=== PATIENT | male | born 1970 | race Caucasian/White ===

== ENCOUNTER 2024-01-03 13:58 | Emergency (ER) | payer BC, SELFPAY ==
[2024-01-03] VITALS (7 sets, daily range): BP systolic 103–123; BP diastolic 79–93
[2024-01-03 14:37] LABS: % Basophils 0.8 % (0-2); % Eosinophils 5.1 % (0-6); % Immature Granulocytes 0.2 % (0-0.5); % Lymphocytes 35.4 % (20.5-51.1); % Monocytes 6.9 % (1.7-9.3); % Neutrophils 51.6 % (42.2-75.2); Absolute Basophils 0.1 10^3/uL (0-0.2); Absolute Eosinophils 0.5 10^3/uL (0-0.7); Absolute Lymphocytes 3.3 10^3/uL (1.2-3.4); Absolute Monocytes 0.6 10^3/uL (0.1-0.6); Absolute Neutrophils 4.8 10^3/uL (1.4-6.5); Hemoglobin 14.8 g/dL (13.0-18.0); Mean Corp Hgb Conc. 35.2 g/dL (33.0-37.0); Mean Corpuscular Hgb 28.7 pg (27.0-31.0); Mean Corpuscular Volume 81.6 fL (80.0-94.0); Mean Platelet Volume 9.3 fL (7.4-10.4); Nucleated Red Blood Cells % 0 % (-); Platelet Count 262 10^3/uL (130-400); Red Blood Cell Count 5.15 10^6/uL (4.70-6.10); Red Cell Dist. Width 12.1 % (11.5-14.5); White Blood Cell Count 9.3 10^3/uL (4.8-10.8)
[2024-01-03 14:56] LABS: D-Dimer < 0.27 ug/mlFEU (0.00-0.50)
[2024-01-03 14:59] LABS: ALT (SGPT) 14 U/L (0-50); AST (SGOT) 21 U/L (17-59); Albumin 4.2 g/dl (3.5-5.0); Alkaline Phosphatase 62 U/L (38-126); Blood Urea Nitrogen 15 mg/dl (9-20); Calcium 9.5 mg/dl (8.4-10.2); Carbon Dioxide 28 mmol/L (22-30); Chloride 105 mmol/L (98-107); Glucose 98 mg/dl (70-99); Potassium 4.3 mmol/L (3.5-5.1); Sodium 139 mmol/L (135-145); Total Bilirubin 0.4 mg/dl (0.2-1.3); Total Protein 6.9 g/dl (6.3-8.2); eGFR > 60.00
[2024-01-03 15:11] LABS: Troponin I < 0.012 ng/ml
[2024-01-03 15:51] LABS: Lipase 218 U/L (23-300)
[2024-01-03 17:58] LABS: Troponin I < 0.012 ng/ml
--- NOTE | 2024-01-03 18:59 | ED.GENMED ---
History of Present Illness
General
Chief Complaint: Chest Pain
Source: patient and spouse
Exam Limitations: none
Time Seen by Provider: 01/03/24 14:20
Nursing documentation reviewed up to this point in time: agreed with
Travel History
Have you had any contact with someone who has COVID-19?: No
Do you have any symptoms of coronavirus? Fever > 100 degrees, chills, cough, shortness of breath, sore throat, loss of taste or smell, muscle aches, or headache?: No
History of Present Illness
History of Present Illness:
53-year-old male with a past medical history of cardiomyopathy, hyperlipidemia, distant history of alcohol abuse (1 year sober), GERD with a hiatal hernia who presents to the emergency department for evaluation of chest pain. Patient reports onset
of symptoms yesterday evening while he was sitting with his computer and have been intermittent since that time. He reports he will get pain that last for few seconds at a time, has had 3-4 episodes an hour over the past 24 hours. He describes a
sharp stabbing pain in the left side of his chest. No exertional component, no clear trigger. He denies any associated shortness of breath. He denies any nausea, vomiting, diaphoresis. He denies any swelling or pain in the legs. Denies any
abdominal pain or back pain. He denies having had similar symptoms in the past.
Past History
Past History
ED Past Medical History: Other (Alcohol abuse, GERD, hyperlipidemia)
Social History
Tobacco: Smoker
Alcohol: Chronic alcoholic
Family History
Family History: Other (He had a brother who had a thrombotic stroke at age 45 but that brother also has atrial fib)
Review of Systems
Review of Systems
All Other Systems: ROS reviewed and negative except as documented in HPI and ROS
Constitutional: Denies fever or chills
EENT: Denies sore throat or runny nose
Respiratory: Denies cough or trouble breathing
Cardiac: Reports chest pain; Denies palpitations
ABD/GI: Denies abdominal pain, nausea or vomiting
: Denies flank pain
Musculoskeletal: Denies neck pain or back pain
Neurological: Denies dizzy, headache, weakness or numbness
Phy Exam
Physical Exam
Physical Exam:
General: Awake, alert; no acute distress
Head: Normocephalic, atraumatic
Eyes: Conjunctiva normal, EOMI
Throat: Airway intact, handling secretions
Neck: Trachea midline, supple without meningismus
Lungs: Clear to auscultation bilaterally, no wheezing, rales, rhonchi
Heart: Regular rate and rhythm, no murmurs, gallops, or rubs
Abd: Soft, non distended, nontender
Neuro: Cranial nerves grossly intact, speech fluid
Skin: no rash
Extremities: No edema in extremities, equal pulses in all extremities
Scores
Heart Failure Risk
Heart Failure Risk Score: Not Applicable
Heart Score for Chest Pain Patients
STEMI patient?: No
History: Slightly or Non-Suspicious
ECG: Normal
Age: >45 - <65 years
Risk Factors: 1 or 2 Risk Factors
Troponin: </= Normal Limit
Heart Score for Chest Pain Patients: 2
Heart Score Risk: 2.5% MACE over next 6 weeks
PE Wells Score
Symptoms of DVT: No
No alternative diagnosis better explains the illness: No
Tachycardia with pulse > 100: No
Immobilization (>=3 days) or surgery within previous 4 weeks: No
Prior history of DVT or pulmonary embolism: No
Presence of hemoptysis: No
Presence of malignancy: No
Pulmonary Embolism Risk Score: 0
Probability of PE: Pt is low risk
Withdrawal Assessment of Alcohol
Withdrawal Assessment Completed?: Not applicable
Course
Orders/Labs/Results
Orders:
Orders
01/03/24 14:01
EKG [Electrocardiogram (*1)] Urgent
Reason for Study: Chest Pain
EKG- Treatment ONCE
01/03/24 14:29
CR Chest - 2 Views Urgent
Comment:
Reason For Exam: CP
01/03/24 14:31
Complete Blood Count/With Diff Urgent
Comprehensive Metabolic Panel Urgent
D-Dimer Urgent
Lipase Urgent
Comment: ADD ON
Troponin I Urgent
01/03/24 15:33
Add On- LAB Urgent
Tests Added?: lipase
01/03/24 17:28
Troponin I Urgent
01/03/24 18:58
Pantoprazole [Protonix IV] 40 mg IV NOW STA
01/03/24 19:29
Ketorolac [Toradol] 15 mg IV NOW STA
01/03/24 14:31
01/03/24 14:31
Vital Signs
Initial and Last Documented VS:
Initial Vital Signs
Temp Pulse Resp BP Pulse Ox
36.7 C 74 16 119/81 98
01/03/24 14:07 01/03/24 14:07 01/03/24 14:07 01/03/24 14:07 01/03/24 14:07
Last Documented Vital Signs
Temp Pulse Resp BP Pulse Ox
36.7 C 63 21 120/93 95
01/03/24 14:07 01/03/24 19:15 01/03/24 19:15 01/03/24 19:00 01/03/24 19:15
MDM/Problems Addressed
Differential Diagnosis Includes:
ACS/angina, PE, pneumothorax, pneumonia, pleurisy, costochondritis, GERD/reflux, esophageal spasms
MDM/Problems Addressed:
53-year-old male with history as above presents for evaluation of chest pain intermittent but consistent for the past 24 hours or so. Vital signs are normal. Exam as above. EKG shows no STEMI. Plan to place an IV check labs including a CBC and a
CMP, lipase. Will trend troponins. Will send a D-dimer. Will check chest x-ray. Will reassess after the above.
Labs reviewed: CBC unremarkable, CMP no clinically significant abnormalities. Troponin undetectable x 2. D-dimer negative. Chest x-ray shows no acute pathology. Patient has had stable vital signs throughout his ED visit. GERD/esophagitis is a
consideration given his history of hiatal hernia but patient insist that this is very distinct from his typical GERD pain and PPI, Maalox have not helped. He has had he says chronic cough for the past 4 to 5 months and given his history
costochondritis or mild pleurisy would also be a consideration. Pericarditis also consideration. I think it is reasonable to have him continue his current GI meds and trial a course of anti-inflammatories�will dose with Toradol here and advised to
take ibuprofen for the next few days to see if this helps at all. Low suspicion for emergent pathology I think he is stable for discharge. Will refer to PCP for follow-up; given his history of cardiomyopathy we will have him follow-up with
cardiology as well although very low suspicion that this represents anginal chest pain. Patient feels comfortable with this plan. We spoke about return precautions and all questions were answered.
Chronic conditions affecting care:
Hiatal hernia, GERD, cardiomyopathy
*Radiology
Radiology exam reviewed: preliminary read by ED provider and radiology read reviewed
*Pulse Oximetry
Patient hypoxic: no
*EKG
Interpreted by ED Provider?: Yes
Heart Rate: 62
Rate: normal
Rhythm: sinus
[place]: left axis deviation
Interval: normal interval
QRS Pattern: normal QRS
Ischemia: other (Nonspecific T wave abnormality)
*Critical Care Note
Total Time (30-74mins, 75-104mins- exclusive of procedures): Not Applicable
Data Reviewed
Review of Other/Old Records Reveals: Labs and Records
Source: patient, records and spouse
ED Attending Note
-
Portions of this chart may have been created with voice recognition software.� Occasional wrong word or��sound alike� substitutions may have occurred due to the inherent limitations of voice recognition software.
Discharge Plan
Departure
Patient Disposition: Home (Routine Discharge)
Date of Disposition: 01/03/24
Time of Disposition: 19:29
Patient with high blood pressure during this ER visit?: No
Discharge Problem:
Chest pain
Instructions: Chest Pain DCA Follow Up, Chest Pain PCP Follow Up
Prescriptions:
No Action
ibuprofen 600 MG tablet
600 mg PO Q6H Qty: 20 0RF
ondansetron 4 MG tablet,disintegrating
4 mg PO TIDPRN PRN (Reason: nausea/vomiting) Qty: 9 0RF
amoxicillin-pot clavulanate 1 TABLET tablet
1 tab PO Q12 Qty: 14 0RF
Referrals:
Kyle Ramirez MD [Active] - Call in 1-3 days for appt
Mayur Vann MD [Family Provider] - Follow up in 2-3 days
Activity Restrictions/Additional Instructions:
Thank you for visiting the Emergency Department at [facility].
1. Please schedule a follow up appointment as directed. Call first thing tomorrow morning to make an appointment.
2. If indicated, please take your medications as instructed and indicated on discharge paperwork.
3. If any of your symptoms do not improve, or persist, or become more severe within 6-12 hours, please return to the emergency department for further care.
4. Please return to the emergency department if you develop a headache, neck pain/stiffness, fever greater than 100.4F, chest pain, shortness of breath, persistent nausea, vomiting, slurred speech, difficulty walking, numbness/tingling, weakness,
signs of infection or any other symptoms that are worrisome to you.
Please call [phone] if you have any questions.
Interventions
Interventions:
*Risk Screen - Suicide Last Done: 01/03/24 14:42
*General Assessment Last Done: 01/03/24 14:42
*Neglect/Abuse Screening Last Done: 01/03/24 14:42
*ED COVID-19 Vaccine History Last Done: 01/03/24 14:07
ED- Cardiac Assessment Last Done: 01/03/24 14:42
Discharge Date and Time
Print Language: GHANAIAN
[2024-01-03] MEDS: TORADOL 15 MG IV (19:31)
== END 2024-01-03 19:37 | disposition home or self-care (01) ==
LOC: EMR 13:58
PROVIDERS: EMERGENCY PHYSICIAN Emergency Medicine; FAMILY PHYSICIAN Internal Medicine
DX: R07.89 Other chest pain (principal); I42.9 Cardiomyopathy, unspecified; E78.00 Pure hypercholesterolemia, unspecified; K21.9 Gastro-esophageal reflux disease without esophagitis; F10.10 Alcohol abuse, uncomplicated; F17.200 Nicotine dependence, unspecified, uncomplicated
CPT/HCPCS: 99283; 96374; 71046; 80053; 83690; 84484; 85025; 85379; 93005